=== PATIENT | male | born 1950 | race Caucasian/White ===

== ENCOUNTER 2017-10-26 21:54 | Observation (INO) | payer MEDICARE, OTHER ==
[~2017-10-26] VITALS: Ht 188 cm; Wt 112.0 kg
[~2017-10-26 21:54] MED LIST: ATOR10 PO; CIPR500 PO; DIOVAN PO; DOXE10 PO; ESCI5 PO; GLIM2 PO; GLIP10 PO; INSDET100 SC; LEVEMIR FL100 UNIT/1; LORA1 PO; LORTAB 7.5-3251 EACH PO; METF500; METF500C PO; METFORMIN; OXYACE5T PO; PIOG30 PO; PIOG45 PO; PIOGLITAZONE; PROC10 PO; PROM25S PR; Prednisone20 MG PO; TAMS.4ER PO; TRESIBA FL100 UNIT/1 SQ; TRESIBA FL200 UNIT/1; TRESIBA SC; VALS80; ZOLP5 PO
[2017-10-26 22:29] LABS: BASOPHILS ABSOLUTE AUTO 0.14 K/mm3 (0.00-0.23); BASOPHILS PERCENT AUTO 1 % (0-2); EOSINOPHILS ABSOLUTE AUTO 0.15 K/mm3 (0.00-0.68); EOSINOPHILS PERCENT AUTO 1 % (0-6); Hematocrit 46.7 % (37.0-53.0); Hemoglobin 16.1 g/dL (13.5-17.5); IMMATURE GRAN ABSOLUTE AUTO 0.15 K/mm3 (0.00-0.10); IMMATURE GRAN PERCENT AUTO 1 % (0-1); LYMPHOCYTES ABSOLUTE AUTO 2.26 K/mm3 (0.84-5.20); LYMPHOCYTES PERCENT AUTO 15 % (21-46); MONOCYTES ABSOLUTE AUTO 1.13 K/mm3 (0.16-1.47); MONOCYTES PERCENT AUTO 7 % (4-13); Mean Corpuscular HGB 28.9 pg (26.0-34.0); Mean Corpuscular HGB Conc 34.5 g/dL (31.5-36.5); Mean Corpuscular Volume 84 fL (80-100); Mean Platelet Volume 11.3 fL (9.1-12.4); NEUTROPHILS ABSOLUTE AUTO 11.78 K/mm3 (1.96-9.15); NEUTROPHILS PERCENT AUTO 75 % (41-73); Platelet Count 289 K/mm3 (150-400); RDW Coefficient Variation 12.2 % (11.7-14.2); RDW Standard Deviation 36.8 fL (35.1-46.3); Red Blood Cell Count 5.57 M/mm3 (4.30-5.90); White Blood Cell Count 15.61 K/mm3 (4.00-11.30)
[2017-10-26 22:48] LABS: Albumin, Blood 4.2 g/dL (3.4-5.0); Bun/Creatinine Ratio 15.6 (12.0-20.0); Calcium, Blood 9.2 mg/dL (8.5-10.1); Creatinine, Blood 1.67 mg/dL (0.60-1.20); Globulin, Blood 4.1 g/dL (2.2-4.0); Potassium, Blood 4.1 mmol/L (3.5-5.5); Total Protein, Blood 8.3 g/dL (6.4-8.2)
[2017-10-26 22:55] LABS: Source, Urine Clean Catch
[2017-10-26 22:58] LABS: Appearance, Urine Hazy (Clear); Blood, Urine 1+ (Neg); Color, Urine Yellow (P-Yellow); Glucose Qualitative, Urine 2+ (Neg); Ketones, Urine 1+ (Neg); Leukocyte Esterase, Urine 3+ (Neg); Nitrite, Urine Neg (Neg); Protein, Urine 3+ (Neg); Urobilinogen, Urine 1+ (Normal)
[2017-10-26 23:04] LABS: Bilirubin, Urine 1+ (Neg); White Blood Cells, Urine 50-100 /hpf (0-5)
[2017-10-26 23:05] LABS: Bacteria Mod /hpf; Red Blood Cells, Urine 0-2 /hpf (0-2); Squamous Epithelial Cells Rare /hpf (Few); Yeast/Fungi Urine Few /hpf
[2017-10-27 08:13] LABS: BASOPHILS PERCENT AUTO 1 % (0-2); EOSINOPHILS ABSOLUTE AUTO 0.16 K/mm3 (0.00-0.68); EOSINOPHILS PERCENT AUTO 1 % (0-6); Hematocrit 43.5 % (37.0-53.0); Hemoglobin 14.9 g/dL (13.5-17.5); IMMATURE GRAN ABSOLUTE AUTO 0.11 K/mm3 (0.00-0.10); IMMATURE GRAN PERCENT AUTO 1 % (0-1); LYMPHOCYTES ABSOLUTE AUTO 1.95 K/mm3 (0.84-5.20); LYMPHOCYTES PERCENT AUTO 17 % (21-46); MONOCYTES ABSOLUTE AUTO 1.08 K/mm3 (0.16-1.47); MONOCYTES PERCENT AUTO 9 % (4-13); Mean Corpuscular HGB 29.2 pg (26.0-34.0); Mean Corpuscular HGB Conc 34.3 g/dL (31.5-36.5); Mean Corpuscular Volume 85 fL (80-100); Mean Platelet Volume 11.3 fL (9.1-12.4); NEUTROPHILS PERCENT AUTO 71 % (41-73); Platelet Count 235 K/mm3 (150-400); RDW Coefficient Variation 12.2 % (11.7-14.2); RDW Standard Deviation 38.2 fL (35.1-46.3); Red Blood Cell Count 5.11 M/mm3 (4.30-5.90)
[2017-10-27 08:36] LABS: Bun/Creatinine Ratio 18.3 (12.0-20.0); Calcium, Blood 8.4 mg/dL (8.5-10.1); Creatinine, Blood 1.42 mg/dL (0.60-1.20); Potassium, Blood 4.3 mmol/L (3.5-5.5)
[2017-12-06] MEDS ORDERED: TEMA30 PO (23:55)
[2017-12-06] MEDS ORDERED: JARDIANCE25 MG PO (23:55)
[2017-12-06] MEDS ORDERED: ESOM20 PO (23:56)
[2017-12-06] MEDS ORDERED: GLIP10 PO (23:56)
== END 2017-10-28 10:55 | disposition home or self-care (01) ==
LOC: ER 21:54 → SURS 21:56 → ER 10-27 00:42 → SURS 10-27 00:42
PROVIDERS: Emergency Medicine; Internal Medicine
DX: K56.609 Unspecified intestinal obstruction, unspecified as to partial versus complete obstruction (principal); I12.9 Hypertensive chronic kidney disease with stage 1 through stage 4 chronic kidney disease, or unspecified chronic kidney disease; E11.22 Type 2 diabetes mellitus with diabetic chronic kidney disease; N18.3 Chronic kidney disease, stage 3 (moderate); F32.9 Major depressive disorder, single episode, unspecified; F41.9 Anxiety disorder, unspecified; K57.30 Diverticulosis of large intestine without perforation or abscess without bleeding; K76.0 Fatty (change of) liver, not elsewhere classified; F17.200 Nicotine dependence, unspecified, uncomplicated; Z79.84 Long term (current) use of oral hypoglycemic drugs; Z79.4 Long term (current) use of insulin; Z79.899 Other long term (current) drug therapy
CPT/HCPCS: 36415; 74176; 80048; 80053; 81001; 82947; 83690; 85025; 87086; 93005; 93010; 96374; 96375; 99285; C9113; G0378; J0696; J1170; J1650; J2405; J7030

== ENCOUNTER 2018-09-20 01:23 | Emergency (ER) | payer MEDICARE, OTHER ==
[~2018-09-20] VITALS: Ht 188 cm; Wt 105.2 kg
[~2018-09-20 01:23] MED LIST changes: +JARDIANCE25 MG PO; +TEMA30 PO
[2018-09-20] MEDS ORDERED: Metformin HCl500 MG PO (01:42)
[2018-09-20] MEDS ORDERED: Augmentin 875-1 EACH PO (02:58)
[2018-09-20] MEDS ORDERED: BENZ100A PO (02:58)
== END 2018-09-20 03:28 | disposition home or self-care (01) ==
LOC: ER 01:23
DX: J18.9 Pneumonia, unspecified organism (principal); Z88.2 Allergy status to sulfonamides; Z88.1 Allergy status to other antibiotic agents; Z79.899 Other long term (current) drug therapy; Z79.84 Long term (current) use of oral hypoglycemic drugs; E11.9 Type 2 diabetes mellitus without complications; Z87.891 Personal history of nicotine dependence
CPT/HCPCS: 71046; 94640; 99283-25

== ENCOUNTER 2018-09-27 07:39 | Inpatient (IN) | payer MEDICARE, OTHER ==
[~2018-09-27] VITALS: Ht 188 cm; Wt 110.0 kg
[~2018-09-27 07:39] MED LIST changes: +Augmentin 875-1 EACH PO; +BENZ100A PO; +Metformin HCl500 MG PO
[2018-09-27 08:26] LABS: BASOPHILS ABSOLUTE AUTO 0.03 K/mm3 (0.00-0.23); BASOPHILS PERCENT AUTO 0 % (0-2); EOSINOPHILS PERCENT AUTO 0 % (0-6); Hematocrit 46.2 % (37.0-53.0); Hemoglobin 15.2 g/dL (13.5-17.5); IMMATURE GRAN ABSOLUTE AUTO 0.09 K/mm3 (0.00-0.10); IMMATURE GRAN PERCENT AUTO 1 % (0-1); LYMPHOCYTES ABSOLUTE AUTO 0.68 K/mm3 (0.84-5.20); LYMPHOCYTES PERCENT AUTO 6 % (21-46); MONOCYTES ABSOLUTE AUTO 0.38 K/mm3 (0.16-1.47); MONOCYTES PERCENT AUTO 4 % (4-13); Mean Corpuscular HGB 29.1 pg (26.0-34.0); Mean Corpuscular HGB Conc 32.9 g/dL (31.5-36.5); Mean Corpuscular Volume 88 fL (80-100); Mean Platelet Volume 11.4 fL (9.1-12.4); NEUTROPHILS ABSOLUTE AUTO 9.62 K/mm3 (1.96-9.15); NEUTROPHILS PERCENT AUTO 89 % (41-73); Platelet Count 345 K/mm3 (150-400); RDW Coefficient Variation 13.3 % (11.7-14.2); RDW Standard Deviation 42.8 fL (35.1-46.3); Red Blood Cell Count 5.23 M/mm3 (4.30-5.90)
[2018-09-27 09:00] LABS: Albumin, Blood 3.2 g/dL (3.4-5.0); Albumin/Globulin Ratio 0.7 (0.8-1.8); Bilirubin, Total 0.8 mg/dL (0.1-1.0); Bun/Creatinine Ratio 27.7 (12.0-20.0); Calcium, Blood 8.8 mg/dL (8.5-10.1); Creatinine, Blood 1.41 mg/dL (0.60-1.20); Globulin, Blood 4.5 g/dL (2.2-4.0); Potassium, Blood 5.3 mmol/L (3.5-5.5); Total Protein, Blood 7.7 g/dL (6.4-8.2)
[2018-09-27] MEDS ORDERED: TAMS.4ER PO (09:05)
[2018-09-27 10:34] LABS: Influenza A Negative (NEGATIVE); Influenza B Negative (NEGATIVE)
[2018-09-27] MEDS ORDERED: **incomplete med rec (12:05)
[2018-09-27] MEDS ORDERED: LEVFLO500 PO (12:07)
[2018-09-27] MEDS ORDERED: ZOLP10 PO (12:08)
[2018-09-27] MEDS ORDERED: GLIM4 PO (12:11)
[2018-09-27] MEDS ORDERED: GLIP10ER PO (12:29)
[2018-09-27] MEDS ORDERED: ESOM20 PO (12:33)
[2018-09-27] MEDS ORDERED: VENL75ER PO (12:34)
[2018-09-27 16:16] LABS: International Normalized Ratio 0.97; Prothrombin Time Results 10.3 Sec (9.7-11.5)
[2018-09-27 16:30] LABS: Free Thyroxine 1.31 ng/dL (0.70-1.60)
[2018-09-27 16:33] LABS: Thyroid Stimulating Hormone 1.36 uIU/mL (0.360-4.800)
[2018-09-27 20:19] LABS: Creatine Kinase MB Index 5.4 (0.0-4.0); Troponin I 0.429 ng/mL (0.000-0.040)
--- NOTE | 2018-09-28 03:55 | NUR ---
SHIFT SUMMARY PT IS A&O, LYING SUPINE LF DURING BS REPORT. HEPARIN DRIP INFUSING IN LAC AND IV ABX INFUSING IN LFA IV. PT ADMITTED FOR NEW ONSET CHF AND FOR FAILING OUTPT TX OF PNM. PT HAS BEEN INDEPENDANT IN RM AND TO BTHRM. IDDM WITH MULTIPLE SNACKS GIVEN. PT HAS ALSO BEEN VERY ANXIOUS TONIGHT, "I CAN'T SLEEP". HS MEDS GIVEN PER EMAR, BUT HAVE NOT BEEN EFFECTIVE FOR SLEEP. PT REPORTED "I HAVEN'T SLEPT IN 13 DAYS", BUT ALSO STATED THAT HE HAS "BEEN ON THE SAME MEDICATIONS FOR YEARS" AND THEY USED TO WORK. ST ON TELE, CARDIOLOGY CONSULT CALLED TO DR LUCITA OSORIO PER ORDERS. SWELLING TO BLE'S; 2+. CALL LT IN REACH.
[2018-09-28 05:06] LABS: BASOPHILS PERCENT AUTO 1 % (0-2); EOSINOPHILS ABSOLUTE AUTO 0.12 K/mm3 (0.00-0.68); EOSINOPHILS PERCENT AUTO 1 % (0-6); Hematocrit 44.8 % (37.0-53.0); Hemoglobin 14.5 g/dL (13.5-17.5); IMMATURE GRAN ABSOLUTE AUTO 0.16 K/mm3 (0.00-0.10); IMMATURE GRAN PERCENT AUTO 1 % (0-1); LYMPHOCYTES ABSOLUTE AUTO 2.51 K/mm3 (0.84-5.20); LYMPHOCYTES PERCENT AUTO 22 % (21-46); MONOCYTES ABSOLUTE AUTO 0.94 K/mm3 (0.16-1.47); MONOCYTES PERCENT AUTO 8 % (4-13); Mean Corpuscular HGB 29.1 pg (26.0-34.0); Mean Corpuscular HGB Conc 32.4 g/dL (31.5-36.5); Mean Corpuscular Volume 90 fL (80-100); Mean Platelet Volume 11.7 fL (9.1-12.4); NEUTROPHILS ABSOLUTE AUTO 7.36 K/mm3 (1.96-9.15); NEUTROPHILS PERCENT AUTO 66 % (41-73); Platelet Count 374 K/mm3 (150-400); RDW Coefficient Variation 13.4 % (11.7-14.2); RDW Standard Deviation 43.8 fL (35.1-46.3); Red Blood Cell Count 4.98 M/mm3 (4.30-5.90); White Blood Cell Count 11.19 K/mm3 (4.00-11.30)
[2018-09-28 05:40] LABS: Anion Gap 9 mmol/L (6-16); Blood Urea Nitrogen 42 mg/dL (8-24); CHOL/HDL RATIO 4.1; CO2, Blood 28 mmol/L (21-32); Calcium, Blood 9.2 mg/dL (8.5-10.1); Chloride, Blood 102 mmol/L (98-108); Cholesterol 150 mg/dL (50-200); Creatine Kinase MB 6.2 ng/mL (0.0-3.6); Creatine Kinase MB Index 5.8 (0.0-4.0); Creatinine, Blood 1.75 mg/dL (0.60-1.20); Glomerular Filtration Rate 41 (60-); Glucose, Blood 178 mg/dL (70-99); HDL Cholesterol 37 mg/dL (>39); LDL/HDL RATIO 2.1; Low Density Lipoprotein Chol 76 mg/dL (0-110); Potassium, Blood 3.9 mmol/L (3.5-5.5); Sodium, Blood 139 mmol/L (136-145); Triglycerides 183 mg/dL (30-160); Very Low Density Lipoprot Chol 36 mg/dL (6-32)
[2018-09-28 06:02] LABS: Troponin I 0.508 ng/mL (0.000-0.040)
--- NOTE | 2018-09-28 06:23 | NUR ---
LAB CALLED WITH CRITICAL RESULT, TAKEN BY CRISTINAG STANLEY CHAN. HOSPITALIST NOTIFIED OF RESULT. NO NEW ORDERS PER TELEPHONE ORDER CLERK. PT SITTING IN CHAIR AT BS, SLEEPING.
--- NOTE | 2018-09-28 11:35 | NUR ---
PATIENT IS CURRENTLY SLEEPING. HAS BEEN ASLEEP FOR ABOUT 1.5HRS. SON AT BEDSIDE.
[2018-09-28 16:33] LABS: BASOPHILS ABSOLUTE AUTO 0.12 K/mm3 (0.00-0.23); BASOPHILS PERCENT AUTO 1 % (0-2); EOSINOPHILS ABSOLUTE AUTO 0.12 K/mm3 (0.00-0.68); EOSINOPHILS PERCENT AUTO 1 % (0-6); Hematocrit 47.6 % (37.0-53.0); Hemoglobin 15.4 g/dL (13.5-17.5); IMMATURE GRAN ABSOLUTE AUTO 0.13 K/mm3 (0.00-0.10); IMMATURE GRAN PERCENT AUTO 1 % (0-1); LYMPHOCYTES ABSOLUTE AUTO 2.82 K/mm3 (0.84-5.20); LYMPHOCYTES PERCENT AUTO 26 % (21-46); MONOCYTES ABSOLUTE AUTO 0.94 K/mm3 (0.16-1.47); MONOCYTES PERCENT AUTO 9 % (4-13); Mean Corpuscular HGB 28.7 pg (26.0-34.0); Mean Corpuscular HGB Conc 32.4 g/dL (31.5-36.5); Mean Corpuscular Volume 89 fL (80-100); Mean Platelet Volume 11.3 fL (9.1-12.4); NEUTROPHILS ABSOLUTE AUTO 6.77 K/mm3 (1.96-9.15); NEUTROPHILS PERCENT AUTO 62 % (41-73); Platelet Count 374 K/mm3 (150-400); RDW Coefficient Variation 13.3 % (11.7-14.2); RDW Standard Deviation 43.3 fL (35.1-46.3); Red Blood Cell Count 5.36 M/mm3 (4.30-5.90)
[2018-09-28 16:54] LABS: Bun/Creatinine Ratio 26.5 (12.0-20.0); Calcium, Blood 9.3 mg/dL (8.5-10.1); Creatinine, Blood 1.62 mg/dL (0.60-1.20); Potassium, Blood 3.8 mmol/L (3.5-5.5)
[2018-09-28 17:05] LABS: International Normalized Ratio 1.01; Prothrombin Time Results 10.7 Sec (9.7-11.5)
--- NOTE | 2018-09-28 18:30 | NUR ---
SHIFT SUMMARY PATIENT CURRENTLY ASLEEP. SLEEPING OFF AND ON MUCH OF THIS AFTERNOON. VISITED WITH DR. LANDRUM FOR ANGIOGRAM. ABLE TO MAKE HIS NEEDS KNOWN. HEPARIN DRIP RUNNING. IV LASIX GIVEN. URINATING FREQUENTLY.
--- NOTE | 2018-09-29 04:13 | NUR ---
SHIFT SUMMARY PT HAD UNEVENTFUL NIGHT. DENIES CHEST PAIN OR SOB. REMAINS EDEMATOUS IN BLE'S BUT PT REPORTS IMPROVEMENT. OCCASSIONAL NON PRODUCTIVE COUGH. TELEMETRY IN PLACE, READING SINUS RHYTHM W/ A BUNDLE BRANCH BLOCK AT 95 THIS EVENING. XANAX GIVEN AT BEDTIME. PT REPORTS FEELING TIRED THIS EVENING EVEN BEFORE XANAX BUT REQUESTED IT FOR SLEEP. PT SLEPT WELL THIS EVENING WHEN NOT BEING WOKEN BY STAFF. PT HAS BEEN NPO SINCE MIDNIGHT FOR ANGIOGRAM TODAY. VSS. NO ACUTE CHANGES.
[2018-09-29 05:48] LABS: Bun/Creatinine Ratio 24.7 (12.0-20.0); Calcium, Blood 9.2 mg/dL (8.5-10.1); Creatinine, Blood 1.74 mg/dL (0.60-1.20); Potassium, Blood 3.6 mmol/L (3.5-5.5)
--- NOTE | 2018-09-29 08:08 | NUR ---
PT WITH LVEDP OF ~20 MMHG - PHYSICIAN AWARE. VERBAL ORDER FOR NS 500 ML IV BOLUS PRIOR TO MORNING LASIX ORDER FOR 80 MG IV. OLIVO CATHETER PRN. PHYSICIAN WITH FAMILY AND PROVIDED UPDATED INFORMATION TO PT WHILE IN [facility].
--- NOTE | 2018-09-29 11:14 | NUR ---
Assumed Care: Assumed care of pt at approx 0930 when pt arrived to room from . R radial access site and no stentes placed during angio. Pt is completely A&Ox4 and already ambulated to bathroom. Pt is not lethargic and CBG stable. Family at bedside. Pt will need transfer to [place] for bypass, and Dr. Barksdale is to set up transfer orders. R radial access site is wnl w/out s/sx of bleed or hematoma. Pt currently resting in bed with call light within reach. Denies any further questions, complaints or requests at this time. Will continue to monitor.
--- NOTE | 2018-09-29 13:12 | NUR ---
2cc's of air removed from TR band. No bleeding, no hematoma, no pain.
--- NOTE | 2018-09-29 15:27 | NUR ---
Update: Pt continues to c/o 3/10 chest pressure, but refusing pain medications at this time. Bina RN notified Dr. Barksdale, and received order for one time dose of metoprolol despite hypotension (SBP 80's-90's) to decrease HR and workload of the heart per Dr. Duckworth.
--- NOTE | 2018-09-29 17:55 | NUR ---
Shift Summary No acute changes since initial shift assessment. VSS. In no apparent sign of distress. Pt is A&Ox4. Calls appropriately and repositions self. Pt has been compliant with R wrist restrictions. Denies any pain post metoprolol one time dose given this afternoon. R TR band deflated per orders/protocol w/out complications. R radial site has clear dressing in place and is free from s/sx of bleed or hematoma. Plan is to possibly transfer pt to [facility] on Wednesday10/03/[address] Flores. Pt is currently resting in bed with call light within reach. Denies any further questions, complaints or requests at this time. Will continue to [facility]. No acute changes or events on tele. Pt has remained on RA.
[2018-09-30 03:52] LABS: BASOPHILS ABSOLUTE AUTO 0.13 K/mm3 (0.00-0.23); BASOPHILS PERCENT AUTO 2 % (0-2); EOSINOPHILS ABSOLUTE AUTO 0.17 K/mm3 (0.00-0.68); EOSINOPHILS PERCENT AUTO 2 % (0-6); Hematocrit 45.2 % (37.0-53.0); Hemoglobin 14.5 g/dL (13.5-17.5); IMMATURE GRAN ABSOLUTE AUTO 0.12 K/mm3 (0.00-0.10); IMMATURE GRAN PERCENT AUTO 1 % (0-1); LYMPHOCYTES ABSOLUTE AUTO 2.21 K/mm3 (0.84-5.20); LYMPHOCYTES PERCENT AUTO 25 % (21-46); MONOCYTES ABSOLUTE AUTO 0.79 K/mm3 (0.16-1.47); MONOCYTES PERCENT AUTO 9 % (4-13); Mean Corpuscular HGB 28.7 pg (26.0-34.0); Mean Corpuscular HGB Conc 32.1 g/dL (31.5-36.5); Mean Corpuscular Volume 89 fL (80-100); Mean Platelet Volume 11.4 fL (9.1-12.4); NEUTROPHILS ABSOLUTE AUTO 5.43 K/mm3 (1.96-9.15); NEUTROPHILS PERCENT AUTO 61 % (41-73); Platelet Count 324 K/mm3 (150-400); RDW Coefficient Variation 13.3 % (11.7-14.2); RDW Standard Deviation 43.6 fL (35.1-46.3); Red Blood Cell Count 5.06 M/mm3 (4.30-5.90); White Blood Cell Count 8.85 K/mm3 (4.00-11.30)
[2018-09-30 04:16] LABS: Bun/Creatinine Ratio 24.7 (12.0-20.0); Calcium, Blood 8.5 mg/dL (8.5-10.1); Creatinine, Blood 1.74 mg/dL (0.60-1.20); Potassium, Blood 3.9 mmol/L (3.5-5.5)
--- NOTE | 2018-09-30 05:25 | NUR ---
SHIFT SUMMARY PATIENT ALERT AND ORIENTED X 3 THROUGHOUT SHIFT. HE SLEPT T/O THE SHIFT AND WAS PLEASANT AND COOPERATIVE WITH VITALS AND ASSESSMENTS. PT HAD SOME COMPLAINTS OF CHEST PAIN/PRESSURE EARLY IN SHIFT. A ONE TIME DOSE OF FENTANYL WAS ORDERED AND ADMINISTERED. PT DENIED ANY FURTHER COMPLAINTS OF DISCOMFORT. HIS VITAL SIGNS WERE STABLE T/O SHFIT AND HIS BP IMPROVED T/O THE NIGHT. PT HAS BEEN INDEPENDENT IN THE ROOM. HE USED HIS CALL LIGHT APPROPRIATELY, WAS ABLE TO MAKE NEEDS KNOWN AND DENIED ANY UNMET NEEDS. HE HAS HIS BED IN THE LOWEST POSITION WITH HIS CALL LIGHT IN REACH. PT WILL CONTINUE TO BE MONITORED UNTIL HANDOFF TO DAYSHIFT RN.
--- NOTE | 2018-09-30 11:49 | NUR ---
Assumed Care: Assumed care of pt at approx 0700. VSS. In no apparent sign of distress. Pt is A&Ox4. Calls appropriately and repositions self. Denies any pain or CP this AM. No s/sx of a cardiac event at this time. Dr. Conte in to see pt this AM and no further orders at this time. Spoke with Dr. Duckworth this AM over the phone, and instructed to administer all cardiac meds/diuretics given most recent BP that was mildly hypotensive. See shift assessment for detailed assessment. Dr. Duckworth states he will be in later in the afternoon to round on the pt. Pt is crrently resting in bed with call light within reach. Denies any further questions, complaints or requests at this time. Will continue to monitor.
--- NOTE | 2018-09-30 19:46 | NUR ---
Shift Summary No acute changes since initial shift assessment. VSS. In no apparent sign of distress. Spoke with Dr. Duckworth today and received parameters for some of the cardiac medications that the pt is receiving. No changes in mentation. Pt has repositioned self and calls appropriately. Plan is still to possibly transfer pt on Wednesday to [facility] for bypass. Pt denies any further CP today, but c/o some CP t/o the shift that was relieved with repositioning. Pt also states that he has had some mild anxiety t/o the day. No acute events on tele. Pt denies any other acute events or complaints t/o the shift. Pt has remained on RA. Currently resting in bed with call light within reach. Denies any further questions, complaints or requests at this time. Will continue to montior until report is given to lian ANGEL.
[2018-10-01 04:32] LABS: Bun/Creatinine Ratio 26.6 (12.0-20.0); Calcium, Blood 8.4 mg/dL (8.5-10.1); Creatinine, Blood 1.69 mg/dL (0.60-1.20); Potassium, Blood 3.9 mmol/L (3.5-5.5)
--- NOTE | 2018-10-01 06:24 | NUR ---
SHIFT SUMMARY PT ALERT AND ORIENTED X 3 THROUGHOUT SHIFT. THERE WERE NO ACUTE CHANGES OBSERVED TO VITALS OR LOC. HE SLEPT WELL T/O THE NIGHT AND DENIED ANY UNMET NEEDS. PT REMAINED INDEPENDENT IN ROOM AND WAS PLEASANT AND COOPERATIVE WITH VITALS AND ASSESSMENTS. CALL LIGHT WAS USED APPROPRIATELY AND LEFT WITHIN EASY REACH. PT WILL CONTINUE TO BE MONITORED UNTIL HANDOFF TO DAYSHIFT RN.
--- NOTE | 2018-10-01 07:28 | NUR ---
NURSING PCU DAYSHIFT: Assumed care of pt at approx 0700. A/O, very pleasant, cooperative w/care. Denies any pain/discomfort. Skin is fairly intact though has redness to b/l ankles w/small scattered scabs/rash. Ambulates independently w/o difficulty. Tele in place, NSR w/BBB, no c/o CP/pressure, SBP 90's, trace-1+ b/l ankle edema. L/S w/fine bibasilar crackles, denies dyspnea, O2 sat low to mid 90's on RA, occ productive cough. Abd SNT, BT+, voiding w/o difficulty per pt. PIV x2, s/l. No s/s of acute distress at this time. Pt denies any current needs or questions regarding plan of care. Family at bedside. Awaiting rounding from PMD and cardiology. Call light remains in reach, cont to monitor for any changes.
--- NOTE | 2018-10-01 16:54 | NUR ---
NURSING PCU DAYSHIFT SUMMARY: Late morning pt began to c/o 09/18 "heartburn" which was constant and across the front of chest. Rubber Ball Finisher notfied, d/o received for OT dose of GI cocktail. After administration it was noted that pt had no improvement. Rubber Ball Finisher notified and new d/o received for SL nitro and increased dose of imdur. After one dose of nitro pain was completely relieved. Approx 45 min later, pt again began to c/o "heartburn" which was again treated w/nitro. Update provided to numerologist, new d/o received for Ranexa, administered as ordered. SBP remained 70-90's t/o the shift, no c/o dizziness/light headedness, MAP currently >65. Family currently at bedside, update provided. Pt and family deny and questions/needs at this time. Call light in reach. Cont to monitor for any changes.
--- NOTE | 2018-10-02 04:49 | NUR ---
SHIFT SUMMARY PT ALERT AND ORIENTED. VS STABLE. SBP WITHIN THE RANGE OF 70'S-90'S. PT DENIES ANY CP. LS CLEAR, BUT DIMINISHED. 02 SATS REMAINED ABOVE 92% ON RA. PT WAS ANXIOUS AND HAVING DIFFICULTY SLEEPING. PT MEDICATED PER EMAR. NO OTHER CHANGES SINCE INITIAL ASSESSMENT. WILL CONTINUE TO MONITOR AND REPORT TO ONCOMING RN. CALL LIGHT IN REACH.
--- NOTE | 2018-10-02 07:13 | NUR ---
NURSING PCU DAYSHIFT: Assumed care of pt at approx 0700. A/O, very pleasant and cooperative w/care, mildly EGEGIK. Independent in room, ambulates w/no c/o dizziness or light headedness. Denies any pain/discomfort. Skin is fairly intact w/scabs/scratches to b/l ankles, R radial site which has been recovered. Tele in place, NSR w/BBB, no c/o CP/pressure, BP stable, trace L ankle edema. L/S fairly cta t/o w/fine crackles to LLL, denies dyspnea, O2 sat mid 90's on RA, occ cough producing thin sputum w/small yellow chunks. Abd SNT, BT+, voiding w/o difficulty. PIV x2, s/l. No s/s of acute distress at this time. Pt denies any current needs or questions regarding plan of care. Call light in reach and pt has been able to use w/o difficulty. Awaiting rounding from PMD and director women, cont to monitor for any changes.
[2018-10-02 08:13] LABS: Bun/Creatinine Ratio 24.1 (12.0-20.0); Calcium, Blood 8.5 mg/dL (8.5-10.1); Creatinine, Blood 1.62 mg/dL (0.60-1.20); Potassium, Blood 4.4 mmol/L (3.5-5.5)
--- NOTE | 2018-10-02 10:18 | NUR ---
Echocardiogram performed.
--- NOTE | 2018-10-02 17:26 | NUR ---
NURSING PCU DAYSHIFT SUMMARY: VS have remained stable t/o the shift. Seen by PMD and cardiology, new d/o received. Pt has noted an increase in heartburn and had an episode during lunch that involved significant coughing and the feeling of "choking" per pt. Discussed w/flat clothier and PMD, new d/o received for GI consult. Call placed to GI, new med orders received and administered. 2D echo completed, disc placed in front of chart. Plan remains for [facility] tomorrow (10/03) for CABG. Plan of care discussed w/pt and family, questions answered. No s/s of acute distress at this time, call light in reach, monitor until rpt is given to NOC RN.
--- NOTE | 2018-10-03 02:29 | NUR ---
ASSUMED CARE AT 1900. DENIES ANY CHEST PAIN . OR GI DISTRESS. SR. BBB. MOIST COUGH OCCASIONALY. AND ENC TO COUGH AND DEEP BREATHE. VS WNL FOR MED PARAMETERS. REFUSED REMERON AT HS AND WHEN UNABLE TO SLEEP AT 0000, TOOK A LONG WALK IN HALLS AND AGREES TO TAKE REMERON TO HELP W/ SLEEP/ SLEEPS NOW IN RECLINER. HS SNACK TAKEN AND COVERED BS.
--- NOTE | 2018-10-03 05:56 | NUR ---
SUMMARY. SLEPT BETTER POST REMERON. PARTIALLY AWAKE NOW AND REPORTS NO DISCOMFORT OR PROBLEMS. SOME MOIST COUGHING. SR BBB.
--- NOTE | 2018-10-03 11:37 | NUR ---
Assumed Care: Assumed care of pt at approx 0700. VSS. In no apparent sign of distress. Pt is A&Ox4. Calls appropriately. Repositions self. Independent in the room. Denies any pain, but c/o feeling that he has a "bubble" in his throat/chest that is relieved with repositioning/ambulation. Order placed for Ranexa 250mg by Dr. Head, but informed by pharmacy that smallest 500mg dose that is available cannot be cut or crushed - will notify Dr. Head. See shift assessment for detailed assessment. Plan was to transfer pt today to [facility] for bypass, but due to weather conditions/road closures, pt is unable to transfer. Pt is currently resting in bed with call light within reach. Denies any further questions, complaints or requests at this time. Will continue to monitor.
--- NOTE | 2018-10-03 18:52 | NUR ---
Shift Summary No acute changes since initial shift assessment. VSS. In no apparent sign of distress. Pt has remained A&Ox4. Calls appropritely. Denies any pain t/o the shift. Reports that the "bubble" feeling in his chest was relieved with ambulation/activity. Pt has repositioned self. Calls appropriately. Denies any acute complaints or events t/o the day. Plan is to attempt [facility] transfer tommorrow if weather permits. Pt has remained on RA. Currently sitting in bed with call light within reach. Denies any further questions, complaints or requests at this time. Will continue to monitor until report is given to lian ANGEL.
[2018-10-04 04:42] LABS: Bun/Creatinine Ratio 21.6 (12.0-20.0); Calcium, Blood 8.7 mg/dL (8.5-10.1); Creatinine, Blood 1.71 mg/dL (0.60-1.20); Potassium, Blood 4.1 mmol/L (3.5-5.5)
--- NOTE | 2018-10-04 05:57 | NUR ---
SHIFT SUMMARY PT ALERT AND ORIENTED. VS STABLE. 02 SATS HAVE REMAINED ABOVE 92% ON RA. PT DENIES ANY CHEST PAIN. PT INDEPENDENT IN ROOM. EKG DONE THIS AM IN FRONT OF CHART. PT SHOWERED THIS AM. WILL CONTINUE TO MONITOR AND REPORT TO ONCOMING RN. CALL LIGHT IN REACH.
--- NOTE | 2018-10-04 08:00 | NUR ---
ASSUMED CARE: REPORT RECEIVED FROM NATASHA Rosario RN. ASSUMED CARE OF THIS PT AT APPROX 0700. ON ASSESSMENT, THE PT IS SITTING UP IN THE CHAIR. HE DENIES PAIN OR NEEDS AT THIS TIME. PROVIDER, DR. DC, IS AT BEDSIDE & HAS DISCUSSED POC/COBRA TX W/ PT. AWAITING BED ASSIGNMENT AT THIS TIME. WILL CONTINUE TO MONITOR & UPDATE NEEDED
--- NOTE | 2018-10-04 14:00 | NUR ---
REPORT REC'D FROM ARYA ANGEL, ASSUMED CARE. PT RESTING IN BED WITH EYES CLOSED. AWAITING PLACEMENT AT [facility].
--- NOTE | 2018-10-04 14:38 | NUR ---
Spiritual care visit conducted. Patient was lying in bed and alert when I entered the room. Patient welcomed me in his room after I introduced myself. Patient explained that he is waiting for open heart surgery in in [place] and that the hospital up there has no beds. I listened empathically, explored patient's belief system, provided companionship, conducted a life review, explored sources of meaning, highlighted patient's resources and coping skills and provided prayer. Patient responded well and showed signs of reduced stress.
--- NOTE | 2018-10-04 18:46 | NUR ---
PT UP WALKING IN HALLS. BED ASSIGNMENT REC'D FROM [facility]. NOW AWAITING [facility] FOR TRANSPORT. NO OTHER ACUTE CHANGES THIS SHIFT. CONT TO MONITOR AND REPORT OFF TO PM RN
--- NOTE | 2018-10-04 19:20 | NUR ---
[facility] HERE TO TRANSPORT PT TO [facility]. PT ALERT AND ORIENTED. VS STABLE. PT AMBULATING IN THE HALLWAY. PT DENIES ANY CP. PT ABLE TO COLLECT HIS BELONGINGS. PT NOTIFIED HIS FAMILY. REPORT CALLED TO YONI ANGEL. PT TAKEN OUT VIA STRETCHER. [facility] W[facility] PROVIDED FOR TRANSPORT.
== END 2018-10-04 19:31 | disposition short-term general hospital (02) | DRG 280 ==
LOC: ER 07:39 → MEDS 11:20 → PCU 11:20 → MEDS 13:35 → PCU 09-29 07:42
PROVIDERS: Internal Medicine; Internal Medicine Cardiovascular Disease; Physician Assistant; ADMIT Internal Medicine
PROC: B2111ZZ Fluoroscopy of Multiple Coronary Arteries using Low Osmolar Contrast (ICD-10-PCS; principal; 2018-09-29)
PROC: 4A023N7 Measurement of Cardiac Sampling and Pressure, Left Heart, Percutaneous Approach (ICD-10-PCS; 2018-09-29)
DX: I21.4 Non-ST elevation (NSTEMI) myocardial infarction (principal); J18.9 Pneumonia, unspecified organism; I50.21 Acute systolic (congestive) heart failure; I13.0 Hypertensive heart and chronic kidney disease with heart failure and stage 1 through stage 4 chronic kidney disease, or unspecified chronic kidney disease; F17.210 Nicotine dependence, cigarettes, uncomplicated; N18.3 Chronic kidney disease, stage 3 (moderate); G47.00 Insomnia, unspecified; E11.22 Type 2 diabetes mellitus with diabetic chronic kidney disease; F41.8 Other specified anxiety disorders; K21.9 Gastro-esophageal reflux disease without esophagitis; I25.5 Ischemic cardiomyopathy; I27.20 Pulmonary hypertension, unspecified; R13.10 Dysphagia, unspecified; I25.119 Atherosclerotic heart disease of native coronary artery with unspecified angina pectoris; Z79.84 Long term (current) use of oral hypoglycemic drugs
CPT/HCPCS: 36415; 71046; 80048; 80053; 80061; 82550; 82553; 82947; 83036; 83880; 84145; 84439; 84443; 84450; 84460; 84484; 85025; 85610; 85730; 87040; 87070; 87205; 87804; 93005; 93010; 93308; 93458; 93971; 96361; 96374; 99152; 99153; 99285-25; C1769; C1894; C8929; C9113; J0456; J0696; J1644; J1650; J1940; J2250; J3010; J7030; J7040; J7050; Q9957; Q9967

== ENCOUNTER 2018-10-12 02:17 | Emergency (ER) | payer MEDICARE, OTHER ==
[~2018-10-12] VITALS: Ht 188 cm; Wt 105.2 kg
[~2018-10-12 02:17] MED LIST changes: +**incomplete med rec; +ESOM20 PO; +GLIM4 PO; +GLIP10ER PO; +LEVFLO500 PO; +VENL75ER PO; +ZOLP10 PO
[2018-10-12 03:51] LABS: BASOPHILS ABSOLUTE AUTO 0.05 K/mm3 (0.00-0.23); BASOPHILS PERCENT AUTO 1 % (0-2); EOSINOPHILS ABSOLUTE AUTO 0.13 K/mm3 (0.00-0.68); EOSINOPHILS PERCENT AUTO 1 % (0-6); Hemoglobin 10.6 g/dL (13.5-17.5); IMMATURE GRAN ABSOLUTE AUTO 0.05 K/mm3 (0.00-0.10); IMMATURE GRAN PERCENT AUTO 1 % (0-1); LYMPHOCYTES ABSOLUTE AUTO 1.13 K/mm3 (0.84-5.20); LYMPHOCYTES PERCENT AUTO 10 % (21-46); MONOCYTES ABSOLUTE AUTO 1.08 K/mm3 (0.16-1.47); MONOCYTES PERCENT AUTO 10 % (4-13); Mean Corpuscular HGB Conc 32.1 g/dL (31.5-36.5); Mean Corpuscular Volume 90 fL (80-100); Mean Platelet Volume 10.9 fL (9.1-12.4); NEUTROPHILS ABSOLUTE AUTO 8.55 K/mm3 (1.96-9.15); NEUTROPHILS PERCENT AUTO 78 % (41-73); Platelet Count 252 K/mm3 (150-400); RDW Coefficient Variation 13.4 % (11.7-14.2); RDW Standard Deviation 44.3 fL (35.1-46.3); Red Blood Cell Count 3.66 M/mm3 (4.30-5.90); White Blood Cell Count 10.99 K/mm3 (4.00-11.30)
[2018-10-12 04:13] LABS: Albumin, Blood 2.8 g/dL (3.4-5.0); Albumin/Globulin Ratio 0.8 (0.8-1.8); Bilirubin, Total 1.2 mg/dL (0.1-1.0); Bun/Creatinine Ratio 19.6 (12.0-20.0); Calcium, Blood 8.1 mg/dL (8.5-10.1); Creatinine, Blood 1.68 mg/dL (0.60-1.20); Globulin, Blood 3.7 g/dL (2.2-4.0); Total Protein, Blood 6.5 g/dL (6.4-8.2)
[2018-10-12] MEDS ORDERED: ACET500 PO (04:18)
[2018-10-12] MEDS ORDERED: GLIP10 PO (04:32)
[2018-10-12] MEDS ORDERED: OXYC5 PO (04:34)
[2018-10-12] MEDS ORDERED: BUME1 PO (04:36)
[2018-10-12] MEDS ORDERED: ASPI81CH PO (04:37)
[2018-10-12] MEDS ORDERED: CARV6.25 PO (07:04)
[2018-10-12] MEDS ORDERED: ATOR80 PO (07:04)
[2018-10-12] MEDS ORDERED: DOCU100 PO (07:07)
[2018-10-12] MEDS ORDERED: OMEPRAZOLE MAGN20 MG PO (07:08)
[2018-10-12 07:47] LABS: Source, Urine Voided
[2018-10-12 07:54] LABS: Bilirubin, Urine Neg (Neg); Blood, Urine 1+ (Neg); Glucose Qualitative, Urine 3+ (Neg); Ketones, Urine Neg (Neg); Leukocyte Esterase, Urine 2+ (Neg); Nitrite, Urine Neg (Neg); Protein, Urine 3+ (Neg); Specific Gravity, Urine 1.015 (1.003-1.022); Urobilinogen, Urine NORM (Normal)
[2018-10-12 08:20] LABS: Appearance, Urine Hazy (Clear); Color, Urine Yellow (P-Yellow)
[2018-10-12 08:22] LABS: White Blood Cells, Urine TNTC /hpf (0-5)
[2018-10-12 08:23] LABS: Bacteria Few /hpf; Red Blood Cells, Urine 0-2 /hpf (0-2); Squamous Epithelial Cells Rare /hpf (Few); Yeast/Fungi Urine Few /hpf
[2018-10-12] MEDS ORDERED: CEPH500 PO (10:35)
== END 2018-10-12 11:29 | disposition home or self-care (01) ==
LOC: ER 02:17
PROVIDERS: Emergency Medicine
DX: N39.0 Urinary tract infection, site not specified (principal); E11.9 Type 2 diabetes mellitus without complications; F17.210 Nicotine dependence, cigarettes, uncomplicated; Z88.2 Allergy status to sulfonamides; Z88.1 Allergy status to other antibiotic agents; Z79.899 Other long term (current) drug therapy; Z79.82 Long term (current) use of aspirin; Z79.84 Long term (current) use of oral hypoglycemic drugs
CPT/HCPCS: 80053; 81001; 83690; 85025; 96374; 99285-25; J0696

== ENCOUNTER → 2018-12-12 | Outpatient (CLI) | payer MEDICARE, OTHER ==
[~2018-12-12] MED LIST changes: +ACET500 PO; +ASPI81CH PO; +ATOR80 PO; +BUME1 PO; +CARV6.25 PO; +CEPH500 PO; +DOCU100 PO; +OMEPRAZOLE MAGN20 MG PO; +OXYC5 PO
== END | disposition home or self-care (01) ==
LOC: LAB SHORT 17:37 → LAB 17:37
DX: R30.0 Dysuria (principal)
CPT/HCPCS: 87086; 87106

== ENCOUNTER 2019-04-08 00:58 | Emergency (ER) | payer MEDICARE, OTHER | END 2019-04-08 01:59 | disposition left against medical advice (07) | LOC: ER 00:58 | DX: Z53.21 Procedure and treatment not carried out due to patient leaving prior to being seen by health care provider (principal) ==

== ENCOUNTER → 2020-01-04 | Outpatient (CLI) | payer MEDICARE, OTHER ==
[2020-01-04 16:05] LABS: Albumin, Blood 3.2 g/dL (3.4-5.0); Albumin/Globulin Ratio 0.9 (0.8-1.8); Bilirubin, Direct 0.3 mg/dL (0.0-0.3); Bilirubin, Indirect 0.6 mg/dL (0.1-0.7); Bilirubin, Total 0.9 mg/dL (0.1-1.0); Bun/Creatinine Ratio 16.9 (12.0-20.0); Calcium, Blood 8.3 mg/dL (8.5-10.1); Creatinine, Blood 3.08 mg/dL (0.60-1.20); Globulin, Blood 3.6 g/dL (2.2-4.0); Magnesium, Blood 1.5 mg/dL (1.6-2.4); Phosphorus, Blood 4.3 mg/dL (2.5-4.9); Potassium, Blood 4.3 mmol/L (3.5-5.5); Total Protein, Blood 6.8 g/dL (6.4-8.2)
[2020-01-04 16:09] LABS: Percent Saturation 14.2 % (20.0-50.0)
[2020-01-04 16:23] LABS: Thyroid Stimulating Hormone 1.49 uIU/mL (0.360-4.800)
== END ==
LOC: LAB 13:00 → LAB SHORT 13:00
PROVIDERS: Internal Medicine Nephrology
DX: E55.9 Vitamin D deficiency, unspecified (principal); E11.22 Type 2 diabetes mellitus with diabetic chronic kidney disease; E11.21 Type 2 diabetes mellitus with diabetic nephropathy; N18.4 Chronic kidney disease, stage 4 (severe); D63.1 Anemia in chronic kidney disease; N25.81 Secondary hyperparathyroidism of renal origin; E78.00 Pure hypercholesterolemia, unspecified; R76.9 Abnormal immunological finding in serum, unspecified; R94.5 Abnormal results of liver function studies; R94.6 Abnormal results of thyroid function studies; D51.8 Other vitamin B12 deficiency anemias; D52.8 Other folate deficiency anemias; D50.9 Iron deficiency anemia, unspecified
CPT/HCPCS: 80053; 82248; 82306; 82607; 82728; 82746; 83036; 83540; 83550; 83735; 84100; 84443; 86038

== ENCOUNTER 2020-01-26 16:47 | Emergency (ER) | payer MEDICARE, OTHER ==
[~2020-01-26] VITALS: Ht 188 cm; Wt 89.8 kg
[2020-01-26 17:06] LABS: BASOPHILS ABSOLUTE AUTO 0.03 K/mm3 (0.00-0.23); BASOPHILS PERCENT AUTO 0 % (0-2); EOSINOPHILS ABSOLUTE AUTO 0.05 K/mm3 (0.00-0.68); EOSINOPHILS PERCENT AUTO 1 % (0-6); Hemoglobin 11.3 g/dL (13.5-17.5); IMMATURE GRAN ABSOLUTE AUTO 0.04 K/mm3 (0.00-0.10); IMMATURE GRAN PERCENT AUTO 0 % (0-1); LYMPHOCYTES ABSOLUTE AUTO 0.81 K/mm3 (0.84-5.20); LYMPHOCYTES PERCENT AUTO 9 % (21-46); MONOCYTES ABSOLUTE AUTO 0.59 K/mm3 (0.16-1.47); MONOCYTES PERCENT AUTO 7 % (4-13); Mean Corpuscular HGB 29.8 pg (26.0-34.0); Mean Corpuscular HGB Conc 33.2 g/dL (31.5-36.5); Mean Corpuscular Volume 90 fL (80-100); Mean Platelet Volume 11.5 fL (9.1-12.4); NEUTROPHILS ABSOLUTE AUTO 7.51 K/mm3 (1.96-9.15); NEUTROPHILS PERCENT AUTO 83 % (41-73); Platelet Count 240 K/mm3 (150-400); RDW Coefficient Variation 14.5 % (11.7-14.2); RDW Standard Deviation 47.5 fL (35.1-46.3); Red Blood Cell Count 3.79 M/mm3 (4.30-5.90); White Blood Cell Count 9.03 K/mm3 (4.00-11.30)
[2020-01-26] MEDS ORDERED: Venlafaxine HCl75 MG PO (17:07)
[2020-01-26] MEDS ORDERED: HYDCHL12.5 (17:07)
[2020-01-26] MEDS ORDERED: TEMA30 PO (17:08)
[2020-01-26] MEDS ORDERED: TRAZ100 (17:08)
[2020-01-26] MEDS ORDERED: GLIP10 PO (17:08)
[2020-01-26 17:34] LABS: Albumin, Blood 3.4 g/dL (3.4-5.0); Albumin/Globulin Ratio 0.8 (0.8-1.8); Bilirubin, Total 1.7 mg/dL (0.1-1.0); Bun/Creatinine Ratio 24.1 (12.0-20.0); Calcium, Blood 8.6 mg/dL (8.5-10.1); Creatinine, Blood 2.82 mg/dL (0.60-1.20); Potassium, Blood 3.2 mmol/L (3.5-5.5); Total Protein, Blood 7.4 g/dL (6.4-8.2)
[2020-01-26 18:16] LABS: Source, Urine Clean Catch
[2020-01-26 18:24] LABS: Bilirubin, Urine Neg (Neg); Blood, Urine 2+ (Neg); Glucose Qualitative, Urine 4+ (Neg); Ketones, Urine Neg (Neg); Leukocyte Esterase, Urine 2+ (Neg); Nitrite, Urine Neg (Neg); Protein, Urine 3+ (Neg); Specific Gravity, Urine 1.015 (1.003-1.022); Urobilinogen, Urine 1+ (Normal)
[2020-01-26 18:30] LABS: Appearance, Urine Clear (Clear); Color, Urine Yellow (P-Yellow)
[2020-01-26 18:32] LABS: Bacteria Few /hpf; Red Blood Cells, Urine Not Seen /hpf (0-2); Squamous Epithelial Cells Not Seen /hpf (Few); White Blood Cells, Urine 50-100 /hpf (0-5)
[2020-01-26] MEDS ORDERED: Lantus100 UNIT/1 SC (20:38)
[2020-01-26] MEDS ORDERED: Macrobid 100 M100 MG PO (20:38)
[2020-01-26] MEDS ORDERED: CEFD300 PO (21:09)
== END 2020-01-26 21:25 | disposition home or self-care (01) ==
LOC: ER 16:47
PROVIDERS: Emergency Medicine
DX: E11.65 Type 2 diabetes mellitus with hyperglycemia (principal); E11.22 Type 2 diabetes mellitus with diabetic chronic kidney disease; I12.9 Hypertensive chronic kidney disease with stage 1 through stage 4 chronic kidney disease, or unspecified chronic kidney disease; N18.3 Chronic kidney disease, stage 3 (moderate); D63.1 Anemia in chronic kidney disease; I25.10 Atherosclerotic heart disease of native coronary artery without angina pectoris; R13.10 Dysphagia, unspecified; Z88.2 Allergy status to sulfonamides; Z88.1 Allergy status to other antibiotic agents; Z79.899 Other long term (current) drug therapy; F41.8 Other specified anxiety disorders; K21.9 Gastro-esophageal reflux disease without esophagitis; I25.2 Old myocardial infarction; F17.210 Nicotine dependence, cigarettes, uncomplicated
CPT/HCPCS: 36415; 80053; 81001; 82947; 83605; 83735; 85025; 87086; 93005; 93010; 96374; 99285-25; C9113; J1815

== ENCOUNTER → 2020-06-13 | Outpatient (CLI) | payer MEDICARE ==
[~2020-06-13] MED LIST changes: +CEFD300 PO; +HYDCHL12.5; +Lantus100 UNIT/1 SC; +Macrobid 100 M100 MG PO; +TRAZ100; +Venlafaxine HCl75 MG PO
== END | disposition home or self-care (01) ==
LOC: LAB 17:35 → LAB SHORT 17:35
DX: M10.9 Gout, unspecified (principal)
CPT/HCPCS: 84550

== ENCOUNTER 2021-02-26 09:40 | Day surgery (SDC) | payer MEDICARE, OTHER | END 2021-02-26 12:20 | disposition home or self-care (01) | LOC: ORSCSDS 09:40 | PROC: 0DBL8ZX Excision of Transverse Colon, Via Natural or Artificial Opening Endoscopic, Diagnostic (ICD-10-PCS; principal; 2021-02-26) | PROC: 0DB48ZX Excision of Esophagogastric Junction, Via Natural or Artificial Opening Endoscopic, Diagnostic (ICD-10-PCS; principal; 2021-02-26) | PROC: 0DB78ZX Excision of Stomach, Pylorus, Via Natural or Artificial Opening Endoscopic, Diagnostic (ICD-10-PCS; principal; 2021-02-26) | DX: R10.10 Upper abdominal pain, unspecified (principal); K21.9 Gastro-esophageal reflux disease without esophagitis; K29.70 Gastritis, unspecified, without bleeding; D12.3 Benign neoplasm of transverse colon; K63.89 Other specified diseases of intestine; R18.8 Other ascites; K57.30 Diverticulosis of large intestine without perforation or abscess without bleeding; E11.9 Type 2 diabetes mellitus without complications; N18.4 Chronic kidney disease, stage 4 (severe); D63.1 Anemia in chronic kidney disease; Z79.899 Other long term (current) drug therapy ==

== ENCOUNTER 2021-02-28 11:05 | Emergency (ER) | payer MEDICARE, OTHER ==
[~2021-02-28] VITALS: Ht 188 cm; Wt 90.7 kg
[~2021-02-28 11:05] MED LIST changes: +ALLO100; +Norco 10-325 T1 EACH; +TEMA15
== END 2021-02-28 13:32 | disposition home or self-care (01) ==
LOC: ER 11:05
DX: N28.9 Disorder of kidney and ureter, unspecified (principal); R18.8 Other ascites; R06.00 Dyspnea, unspecified; E11.22 Type 2 diabetes mellitus with diabetic chronic kidney disease; I12.9 Hypertensive chronic kidney disease with stage 1 through stage 4 chronic kidney disease, or unspecified chronic kidney disease; N18.30 Chronic kidney disease, stage 3 unspecified; Z79.84 Long term (current) use of oral hypoglycemic drugs; Z88.2 Allergy status to sulfonamides; Z88.1 Allergy status to other antibiotic agents
CPT/HCPCS: 71045; 99283-25